=== PATIENT | male | born 1960 | race Caucasian/White ===

== ENCOUNTER 2022-03-18 06:00 | Day surgery (SDC) | payer BC ==
[2022-03-13 11:53] LABS: Absolute Lymphocytes (CBC) 1.8 K/uL (0.7-4.9); Hematocrit 45.4 % (39.6-49.0); Lymphocytes % 21.9 % (15.3-44.8); MPV 7.4 fL (7.6-11.3); RBC Red Blood Cell Count 5.17 M/uL (4.33-5.43)
[2022-03-13 11:58] LABS: Protime INR 1.04
[2022-03-18] MEDS ORDERED: NA CHLORIDE 0.9% 1,000 ML ONE ×2 (06:06→09:09)
[2022-03-18] MEDS ORDERED: CEFAZOLIN SODIUM 2 GM/VIAL ONE (06:06)
[2022-03-18] MEDS ORDERED: ROPLVACAINE HCL 20 ML ONE ×2 (06:46→06:49)
[2022-03-18] MEDS ORDERED: MIDAZOLAM HCL 2 MG/2 ML INJ ONE (06:47)
[2022-03-18] MEDS ORDERED: dexAMETHasone 4 MG/ML VIAL ONE (06:47)
[2022-03-18] MEDS ORDERED: FENTANYL CITR 100 MCG/2 ML ONE ×2 (06:48→09:16)
[2022-03-18] MEDS ORDERED: EPINEPHRINE/PF 1 MG/ML AMP ONE ×2 (06:56→07:10)
[2022-03-18] MEDS ORDERED: LIDOCAINE 1% MPF 30 ML VIAL ONE (07:05)
[2022-03-18] MEDS ORDERED: SODIUM BICARB 50 MEQ/50ML VIAL ONE (07:06)
[2022-03-18] MEDS ORDERED: propofoL 200 MG/20 ML VIAL IV ONE (07:23)
[2022-03-18] MEDS ORDERED: ROCURONIUM 50 MG/5 ML VIAL IV ONE (07:23)
[2022-03-18] MEDS ORDERED: LIDOCAINE 2% MPF 5 ML VIAL ONE (07:23)
[2022-03-18] MEDS ORDERED: EPHEDRINE SULF 50 MG/ML VIAL ONE (08:49)
[2022-03-18] MEDS ORDERED: ONDANSETRON 4 MG/2 ML VIAL ONE (09:04)
[2022-03-18] MEDS ORDERED: KETOROLAC 30 MG/ML INJ ONE (09:56)
--- NOTE | 2022-03-18 10:11 | P.BOP ---
Preoperative diagnosis: left rotator cuff tear, biceps tenosynovitis, impingement syndrome Postoperative diagnosis: same Primary procedure: left shoulder arthroscopic rotator cuff repair Secondary procedure: left shoulder arthroscopic biceps tenotomy Other procedure(s): left shoulder arthroscopic subacromial decompression Estimated blood loss: 10 cc Specimen: none Findings: see dictation Anesthesia: General Complications: None Implants: 4.75 mm arthrex swivelock Fluids & blood products: per anesthesia record Transferred to: Recovery Room Condition: Good
[2022-03-18] MEDS ORDERED: HYDROCODONE/APAP 7.5/325 MG TAB ONE (11:40)
--- NOTE | 2022-03-18 11:40 | RAD REPORT ---
EXAM DESCRIPTION: RAD - Shoulder 1 View - 03/18/2022 10:49 am CLINICAL HISTORY: s/p L rotator cuff repair COMPARISON: No comparisons FINDINGS: Mild soft tissue swelling. No fracture or dislocation. No unexpected immediate postoperati ve finding.
[2022-03-18 12:02] VITALS: BP 126/68; TEMP 96.5; O2SAT 95
== END 2022-03-18 11:55 | disposition home or self-care (01) ==
LOC: OR 06:00
PROVIDERS: ATTEND Orthopaedic Surgery Sports Medicine
PROC: 0RNK4ZZ Release Left Shoulder Joint, Percutaneous Endoscopic Approach (ICD-10-PCS; principal; 2022-03-18 08:00)
DX: M75.102 Unspecified rotator cuff tear or rupture of left shoulder, not specified as traumatic (principal); M75.22 Bicipital tendinitis, left shoulder; M75.42 Impingement syndrome of left shoulder; M25.512 Pain in left shoulder; E11.65 Type 2 diabetes mellitus with hyperglycemia; G47.33 Obstructive sleep apnea (adult) (pediatric); F17.200 Nicotine dependence, unspecified, uncomplicated
CPT/HCPCS: 85025; 80048; 36415; 85610; 82947 ×2; 85730; 73020; 29827; 29826; J2704; J1100; J0171 ×2; J2001 ×2; J2250; J3010 ×2; J2795 ×2; J7030 ×2; J2405

== ENCOUNTER 2024-03-13 19:14 | Emergency (ER) | payer BC ==
[2024-03-13] MEDS ORDERED: NA CHLORIDE 0.9% 1,000 ML ONE (20:09)
[2024-03-13 20:10] LABS: Absolute Basophils 0.1 K/uL (0-0.5); Absolute Eosinophils 0.3 K/uL (0-0.5); Absolute Lymphocytes (CBC) 1.6 K/uL (0.7-4.9); Absolute Monocytes 0.5 K/uL (0.1-1.3); Absolute Neutrophil 6.1 K/uL (1.8-8.0); Basophils % 1.5 % (0-1.3); Eosinophils % 3.4 % (0-4.4); Hematocrit 43.9 % (39.6-49.0); Hemoglobin 14.4 g/dL (13.6-17.9); Lymphocytes % 18.3 % (15.3-44.8); MCH 28.8 pg (27.0-35.0); MCHC 32.7 g/dL (32.0-36.0); MCV 88.1 fL (80-100); MPV 7.4 fL (7.6-11.3); Monocytes % 6.3 % (3.3-12.3); Neutrophils % 70.5 % (41.7-73.7); Nucleated RBC Absolute Count 0.1 (0-0); Nucleated Red Blood Cells % 0.7 % (0-0); Platelets 263 thou/uL (152-406); RBC Red Blood Cell Count 4.99 M/uL (4.33-5.43); Red Cell Distribution Width 14.2 % (12.1-15.2)
[2024-03-13 20:15] LABS: PT Prothrombin Time 11.6 SECONDS (9.4-12.5); Protime INR 1.11
[2024-03-13 20:26] LABS: ALT/SGPT 22 U/L (16-61); AST/SGOT 18 U/L (15-37); Albumin 3.5 g/dL (3.4-5.0); Alkaline Phosphatase 56 U/L (45-117); Anion Gap 12.7 mEq/L (5.0-15.0); BUN Blood Urea Nitrogen 16 mg/dL (7-18); Bicarbonate 21 mEq/L (21-32); Bilirubin Total 0.4 mg/dL (0.2-1.0); Globulin 3.6 g/dL (2.3-3.5); Glomerular Filtration Rate 68 ml/min (=/>90); Glucose Level 162 mg/dL (74-106); Magnesium 2.1 mg/dL (1.6-2.4); Potassium 3.7 mEq/L (3.5-5.1); Protein, Total 7.1 g/dL (6.4-8.2); Sodium Level 139 mEq/L (136-145)
[2024-03-13 20:29] LABS: Bilirubin Direct < 0.2 mg/dL (0-0.2); Bilirubin Indirect, Calculated 0.2 mg/dL (0.2-0.8)
[2024-03-13 20:43] LABS: Blood Morphology Comment NOT SEEN (NOT SEEN); Platelet Estimate ADEQ; White Blood Cell Scan OK (OK)
--- NOTE | 2024-03-13 21:06 | RAD REPORT ---
EXAM: CT Head Brain Wo Cont HISTORY: SYNCOPE COMPARISON: 08/22/2007 TECHNIQUE: Multiple contiguous axial images were obtained for a CT of the brain without contrast. Sag ittal and coronal reformats were performed. One or more of the following dose reduction techniques were used: Automated exposure control, adjus tment of the mA and kV according to patient size, and iterative reconstruction. Unless otherwise specified, incidental findings do not require dedicated imaging follow-up. FINDINGS: No evidence of hydrocephalus, intracranial hemorrhage, or extra-axial fluid collection. The brain is normal in morphology. The calvarium is intact. The visualized paranasal sinuses and mastoid air cells are essentially clear . IMPRESSION: No evidence of acute intracranial abnormality.
--- NOTE | 2024-03-13 21:39 | RAD REPORT ---
EXAMINATION: ONE VIEW CHEST XR CLINICAL INDICATION: Male, 63 years old.,syncope TECHNIQUE: Frontal chest projection is submitted. Examination is limited by patient positioning and t echnique. COMPARISON: 02/04/2022 FINDINGS: The lungs are well inflated and clear. No pneumothorax or sizable effusion. The heart is normal in s ize. Mediastinal contours are unremarkable. IMPRESSION: No acute intrathoracic abnormalities.
--- NOTE | 2024-03-13 21:56 | EDPHYS ---
Physician Documentation [facility] Name: Eleazar Arceo Age: 63 yrs Sex: Male : 1960 Arrival Date: 03/13/2024 Time: 19:14 Bed 16 Private MD: ED Physician Florian Tejada HPI: 03/13 22:43 This 63 yrs old Male presents to ER via EMS with complaints of syncope. 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 Pt kb states he was eating at [facility]. When he finished eating he started getting some upper abd cramps, got hot, nauseated and felt faint. Pt went into the restroom to put water on his face and had a syncopal episode when he turned to throw a towel away. Pt hit his head when he passed out. reports pt had just gone in and then someone else entered the restroom and found pt on the ground. States she ran in and he was awake and vomiting. Pt states he has felt back to normal since vomiting. States he really didn't want to come to the ER, but the restaurant was insistent. Pt currently has no complaints. Historical: - Allergies: 19:44 No Known Allergies; dd2 - PMHx: 19:44 Diabetes - NIDDM; High Cholesterol; dd2 - PSHx: 19:44 None; dd2 - Immunization history:: Adult Immunizations up to date. - Infectious Disease History:: Denies. - Social history:: Smoking status: Patient denies any tobacco usage or history of. ROS: 22:42 Constitutional: As per HPI kb Exam: 20:17 Constitutional: This is a well developed, well nourished patient who is awake, alert, kb and in no acute distress. Head/Face: Normocephalic, atraumatic. ENT: Moist Mucous membranes Cardiovascular: Regular rate Respiratory: Respirations even and unlabored. No increased work of breathing. Talking in full sentences Abdomen/GI: Soft, non-tender. No distention Skin: Warm, dry with normal turgor. Normal color. MS/ Extremity: Pulses equal, no cyanosis. Neurovascular intact. Full, normal range of motion. Neuro: Awake and alert, GCS 15, oriented to person, place, time, and situation. 20:17 ECG was reviewed by the Attending Physician. Vital Signs: 19:30 BP 122 / 69; Pulse 111; Resp 16; Pulse Ox 99% on R/A; dd2 19:40 BP 115 / 69; Pulse 113; Resp 16; Temp 98.2; Pulse Ox 98% on R/A; Weight 83.91 kg; dd2 Height 5 ft. 7 in. ; Pain 0/10; 20:00 BP 120 / 66; Pulse 109; Resp 17; Pulse Ox 98% on R/A; dd2 21:00 BP 127 / 72; Pulse 98; Resp 16; Pulse Ox 100% on R/A; dd2 22:08 BP 124 / 68; Pulse 91; Resp 16; Pulse Ox 100% on R/A; dd2 19:40 Body Mass Index 28.97 (83.91 kg, 170.18 cm) dd2 19:40 Pain Scale: Adult dd2 MDM: 19:39 Medical Screening Exam initiated kb 21:54 Differential Diagnosis: cardiac arrhythmia, idiopathic syncope, vasovagal episode. Data kb reviewed: vital signs, nurses notes. Consideration of Admission/Observation Escalation of care including admission/observation considered. 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 States he feels back to normal. Historians other than the Patient: EMS: [facility]. Counseling: I had a detailed discussion with the patient and/or guardian regarding the historical points, exam findings, and any diagnostic results supporting the discharge/admit diagnosis, lab results, radiology results, the need for outpatient follow up, a mechanical engineering teacher, a family practitioner, to return to the emergency department if symptoms worsen or persist or if there are any questions or concerns that arise at home. 03/13 19:39 Order name: Basic Metabolic Panel; Complete Time: 20:37 kb 03/13 19:39 Order name: CBC with Diff; Complete Time: 20:43 kb 03/13 19:39 Order name: Hepatic Function; Complete Time: 20:37 kb 03/13 19:39 Order name: Magnesium; Complete Time: 20:37 kb 03/13 19:39 Order name: Protime (+inr); Complete Time: 20:16 kb 03/13 19:39 Order name: Ptt, Activated; Complete Time: 20:16 kb 03/13 19:39 Order name: Troponin High Sensitivity; Complete Time: 20:37 kb 03/13 20:16 Order name: CBC Smear Scan; Complete Time: 20:43 EDMS 03/13 19:39 Order name: CT Head Brain wo Cont; Complete Time: 21:09 kb 03/13 19:39 Order name: Chest Single View XRAY; Complete Time: 21:43 kb 03/13 19:39 Order name: Cardiac monitoring; Complete Time: 20:13 kb 03/13 19:39 Order name: EKG - Nurse/Tech; Complete Time: 20:13 kb 03/13 19:39 Order name: IV Saline Lock; Complete Time: 20:01 kb 03/13 19:39 Order name: Labs collected and sent; Complete Time: 20:01 kb 03/13 19:39 Order name: NPO; Complete Time: 20:01 kb 03/13 19:39 Order name: O2 Per Protocol; Complete Time: 20:01 kb 03/13 19:39 Order name: O2 Sat Monitoring; Complete Time: 20:02 kb EC:17 Rate is 112 beats/min. Rhythm is regular. QRS Sh[place] is Normal. ME interval is normal at kb 130 msec. QRS interval is normal at 138 msec. QT interval is prolonged at 505 msec. Administered Medications: 20:13 Drug: NS 0.9% IV 1000 ml IV at 1000 ml once; to be given as a bolus over 60 minutes dd2 Route: IV; Rate: 1000 ml; Site: left antecubital; 20:28 Follow up: Response: No adverse reaction dd2 21:13 Follow up: IV Status: Completed infusion; IV Intake: 1000ml dd2 Disposition Summary: 03/13/24 21:55 Discharge Ordered Notes: Location: Home kb Condition: Stable kb Diagnosis - Syncope kb Followup: kb - With: Emergency Department - When: As needed - Reason: Worsening of condition Followup: kb - With: Private Physician - When: 2 - 3 days - Reason: Recheck today's complaints, Continuance of care, Re-evaluation by your physician Discharge Instructions: - Discharge Summary Sheet kb - Syncope, [id number] kb Forms: - Medication Reconciliation Form kb - Antibiotic Education kb - Prescription Opioid Use kb - Patient Portal Instructions kb - Leadership Thank You Letter kb Addendum: 03/17/2024 10:07 Co-signature as Attending Physician, Florian Tejada MD I reviewed the patient's care r n provided by the Advanced Practice Provider and agree with the diagnosis and treatment plan. Signatures: Dispatcher [employer] EDMargoth Amador, TIMBER HEWER-C TIMBER HEWER-Ckb Florian Tejada MD MD rn DAVIS, DIANA, RN RN dd2 Corrections: (The following items were deleted from the chart) 03/13 19:40 19:40 Chest Single View+[email or web address].[email or web address] ordered. 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 Pt states he was eating at [facility]. When he finished eating he started getting some upper abd cramps, got hot, nauseated and felt faint. Pt went into the restroom to put water on his face and had a syncopal episode when he turned to throw a towel away. Pt hit his head when he passed out. reports pt had just gone in and then someone else entered the restroom and found pt on the ground. States she ran in and he was awake and vomiting. Pt states he has felt back to normal since vomiting. States he really didn't want to come to the ER, but the restaurant was insistent. . kb
--- NOTE | 2024-03-13 21:56 | ER ---
Nurse's Notes [facility] Name: Eleazar Arceo Age: 63 yrs Sex: Male : 1960 Arrival Date: 03/13/2024 Time: 19:14 Bed 16 Private MD: Diagnosis: Syncope Presentation: 03/13 19:40 Chief complaint: EMS states: PT [place] EATING AT [employer], BEGAN HAVING ABDOMINAL CRAMPS, dd2 FELT FLUSHED AND ITCHY. PT WENT TO THE BATHROOM TO WASH HIS FACE AND WAS FOUND IN THE FLOOR WITH VOMIT NEXT TO HIM. PT REPORTS NOT REMEMBERING PASSING OUT. Coronavirus screen: At this time, the client does not indicate any symptoms associated with coronavirus-19. Ebola Screen: No symptoms or risks identified at this time. Initial Sepsis Screen: Does the patient meet any 2 criteria? No. Patient's initial sepsis screen is negative. Does the patient have a suspected source of infection? No. Patient's initial sepsis screen is negative. Risk Assessment: Do you want to hurt yourself or someone else? Patient reports no desire to harm self or others. Onset of symptoms was March 13, 2024. Care prior to arrival: IV initiated. 20 GA, in the left antecubital area, Glucose check: 188. 19:40 Method Of Arrival: EMS: [facility] dd2 19:40 Acuity: JACKIE 3 dd2 Triage Assessment: 19:44 General: Appears in no apparent distress. Behavior is calm, cooperative, appropriate dd2 for age. Pain: Denies pain. EENT: No deficits noted. No signs and/or symptoms were reported regarding the EENT system. Neuro: Calix Agitation-Sedation Scale (RASS): 0 - Alert and Calm Level of Consciousness is awake, alert, obeys commands, Oriented to person, place, time, situation, Appropriate for age. 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 Rhythm is sinus tachycardia. Respiratory: No deficits noted. Airway is patent Respiratory effort is even, unlabored, Respiratory pattern is regular, symmetrical. GI: Abdomen is round non-distended, Bowel sounds present X 4 quads. 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 : No deficits noted. No signs and/or symptoms were reported regarding the genitourinary system. Derm: No deficits noted. No signs and/or symptoms reported regarding the dermatologic system. Musculoskeletal: No deficits noted. No signs and/or symptoms reported regarding the musculoskeletal system. Circulation, motion, and sensation intact. Range of motion: intact in all extremities. Historical: - Allergies: 19:44 No Known Allergies; dd2 - PMHx: 19:44 Diabetes - NIDDM; High Cholesterol; dd2 - PSHx: 19:44 None; dd2 - Immunization history:: Adult Immunizations up to date. - Infectious Disease History:: Denies. - Social history:: Smoking status: Patient denies any tobacco usage or history of. Screenin:00 [facility] ED Fall Risk Assessment (Adult) History of falling in the last 3 months, dd2 including since admission Yes- physiologic fall (2 pts) Confusion or Disorientation No (0 pts) Intoxicated or Sedated No (0 pts) Impaired Gait No (0 pts) Mobility Assist Device Used No (0 pt) Altered Elimination No (0 pt) Score/Fall Risk Level 0 - 2 = Low Risk Oriented to surroundings, Maintained a safe environment, Educated pt \T\ family on fall prevention, incl call for assistance when getting out of bed, Assessed \T\ reinforced patient's understanding of fall precautions, Hourly rounding (assess needs \T\ fall precautionary measures) done. Abuse screen: Denies threats or abuse. Nutritional screening: No deficits noted. Tuberculosis screening: No symptoms or risk factors identified. Assessment: 19:46 Reassessment: SEE TRIAGE ASSESSMENT FOR FULL ASSESSMENT. dd2 Vital Signs: 19:30 BP 122 / 69; Pulse 111; Resp 16; Pulse Ox 99% on R/A; dd2 19:40 BP 115 / 69; Pulse 113; Resp 16; Temp 98.2; Pulse Ox 98% on R/A; Weight 83.91 kg; dd2 Height 5 ft. 7 in. ; Pain 0/10; 20:00 BP 120 / 66; Pulse 109; Resp 17; Pulse Ox 98% on R/A; dd2 21:00 BP 127 / 72; Pulse 98; Resp 16; Pulse Ox 100% on R/A; dd2 22:08 BP 124 / 68; Pulse 91; Resp 16; Pulse Ox 100% on R/A; dd2 19:40 Body Mass Index 28.97 (83.91 kg, 170.18 cm) dd2 19:40 Pain Scale: Adult dd2 ED Course: 19:38 Patient arrived in ED. dd2 19:39 Margoth Johns FNP-C is [facility]. kb 19:39 Florian Tejada MD is Attending Physician. kb 19:40 JAVED DEUTSCH, GALINA is Primary Nurse. dd2 19:44 Triage completed. dd2 19:44 Arm band placed on right wrist. Patient placed in an exam room, on a stretcher, on dd2 pulse oximetry. 20:00 Patient has correct armband on for positive identification. Bed in low position. Call dd2 light in reach. Side rails up X 1. Provided Education on: CALL LIGHT, MEDICATION, LABS/RADIOLOGY. Client placed on continuous cardiac and pulse oximetry monitoring. NIBP monitoring applied. Door closed. Noise minimized. Pillow given. Verbal reassurance given. 20:00 No provider procedures requiring assistance completed. Maintain EMS IV. Dressing dd2 intact. Good blood return noted. Site clean \T\ dry. Gauge \T\ site: 20G LAC. Flushed with 10 mL NS. Patient maintains SpO2 saturation greater than 95% on room air. 20:19 CT Head Brain wo Cont In Process Unspecified. EDMS 20:31 Chest Single View XRAY In Process Unspecified. EDMS 22:08 IV discontinued, intact, bleeding controlled, No redness/swelling at site. Pressure dd2 dressing applied. Administered Medications: 20:13 Drug: NS 0.9% IV 1000 ml IV at 1000 ml once; to be given as a bolus over 60 minutes dd2 Route: IV; Rate: 1000 ml; Site: left antecubital; 20:28 Follow up: Response: No adverse reaction dd2 21:13 Follow up: IV Status: Completed infusion; IV Intake: 1000ml dd2 Medication: 22:08 VIS not applicable for this client. dd2 Intake: 21:13 IV: 1000ml; Total: 1000ml. dd2 Outcome: 21:55 Discharge ordered by . kb 22:08 Discharged to home ambulatory, dd2 22:08 Condition: good 22:08 Discharge instructions given to patient, family, Instructed on discharge instructions, follow up and referral plans. Demonstrated understanding of instructions, follow-up care, 22:08 Patient left the ED. dd2 Signatures: Dispatcher [employer] Margoth Woodruff, DATABASE ADMINISTRATOR-C DATABASE ADMINISTRATOR-JAVED Middleton, RN RN dd2
[2024-03-14 17:10] VITALS: BP 124/68; TEMP 98.2; O2SAT 100
--- NOTE | 2024-03-16 12:00 | EKG ---
Test Date: 2024-03-13 Test Time: 20:11:09 Steam Shovel Oiler: DA MEASUREMENT RESULTS: Intervals: Rate: 112 TN: 130 QRSD: 138 QT: 370 QTc: 505 Grover: P: 52 TN: 130 QRS: 123 T: 37 INTERPRETIVE STATEMENTS: Sinus tachycardia Right bundle branch block Left posterior fascicular block Bifascicular block Abnormal ECG Compared to ECG 02/04/2022 11:11:00 Right bundle-branch block now present Left posterior fascicular block now present Bifascicular block now present Sinus rhythm no longer present Electronically Signed On 03-16-24 11:58:49 CABIN EQUIPMENT SUPERVISOR by Leo Colvin
== END 2024-03-13 22:08 | disposition home or self-care (01) ==
LOC: ER 19:14
DX: R55 Syncope and collapse (principal); R11.10 Vomiting, unspecified
CPT/HCPCS: 93005; 85025; 80048; 36415; 83735; 85610; 80076; 85730; 84484; 70450; 71045; 96360; 99284; J7030